=== PATIENT | male | born 1965 | race Caucasian/White ===

== ENCOUNTER 2018-04-05 23:54 | Emergency (ER) | payer OTHER ==
[2018-04-06] MEDS ORDERED: MORPHINE 10 MG/ML VIAL IVP STA (00:25)
[2018-04-06] MEDS ORDERED: SODIUM CHLORIDE 0.9% 1,000 ML IV ONE (00:25)
[2018-04-06 00:37] LABS: BASOPHILS % (AUTO) 0.1 %; EOSINOPHILS % (AUTO) 0.4 %; HGB - HEMOGLOBIN 14.2 g/dL (14.0-18.0); LYMPHOCYTES # (AUTO) 0.7 10^3/uL (1.5-3.5); LYMPHOCYTES % (AUTO) 7.5 %; MEAN CORPUSCULAR HEMOGLOBIN 32.4 pg (27.0-31.0); MEAN CORPUSCULAR HGB CONC 35.1 g/dL (32.0-36.0); MEAN CORPUSCULAR VOLUME 92.2 fL (80.0-94.0); MEAN PLATELET VOLUME 9.5 fL (7.4-11.4); MONOCYTES # (AUTO) 0.6 10^3/uL (0.0-1.0); MONOCYTES % (AUTO) 6.5 %; NEUTROPHILS # (AUTO) 8.2 10^3/uL (1.5-6.6); NEUTROPHILS % (AUTO) 85.5 %; PLT - PLATELET COUNT 183 10^3/uL (130-450); RED CELL DISTRIBUTION WIDTH 13.3 % (12.0-15.0); WHITE BLOOD COUNT 9.6 x10^3/uL (4.8-10.8)
[2018-04-06 00:44] LABS: ALBUMIN 4.3 g/dL (3.2-5.5); ALBUMIN/GLOBULIN RATIO 1.3 (1.0-2.2); BILIRUBIN,TOTAL 1.3 mg/dL (0.2-1.0); CALCIUM 8.9 mg/dL (8.5-10.3); TOTAL PROTEIN 7.6 g/dL (6.7-8.2)
--- NOTE | 2018-04-06 01:07 | XRAY Report ---
Reason: chest pain Procedure Date: 04/06/2018 Accession Number: [id number] / [id number] Procedure: XR - Chest 1 View X-Ray CPT Code: 40479 FULL RESULT: EXAM: CHEST RADIOGRAPHY EXAM DATE: 04/06/2018 12:55 AM. CLINICAL HISTORY: Chest pain. COMPARISON: None. TECHNIQUE: 1 view. FINDINGS: Lungs/Pleura: No alveolar consolidation or pleural effusion is seen. No pneumothorax is noted. Mediastinum: Within exam limitations, the cardiomediastinal contour is normal. Other: None. IMPRESSION: 1. No acute abnormality seen in the chest. [facility]
[2018-04-06] MEDS ORDERED: ASPIRIN CHEW 81 MG TABLET PO STA (03:39)
--- NOTE | 2018-04-06 04:00 | ED Physician Documentation ---
PD HPI CHEST PAIN - Stated complaint Stated Complaint: CHEST PRESSURE/HD PX/DIARRHEA - Chief complaint Chief Complaint: Cardiac - History obtained from History obtained from: Patient - History of Present Illness Timing - onset: How many hours ago (4) Timing - onset during: Rest Timing - details: Gradual onset, Still present Quality: Pressure, Sharp Location: Substernal Associated symptoms: Diaphoresis, Nausea, General Weakness. No: Shortness of air, Vomiting Similar symptoms before: Has not had sx before - Additional information Additional information: Patient is a 52 year old male with no significant past medical history who is presenting to the emergency department for chest pain. patient states that about 4 hours ago he had an episode of substernal and epigastric pain. patient states that he has some nausea and diarrhea with it. Patient states that he developed a headache and overall did not feel well so he came to the emergency department for evaluation. Review of Systems Constitutional: denies: Fever, Chills Eyes: reports: Photophobia Cardiac: reports: Chest pain / pressure. denies: Palpitations, Pedal edema, Calf pain Respiratory: denies: Dyspnea, Cough GI: reports: Nausea, Diarrhea. denies: Vomiting Musculoskeletal: denies: Back pain Immunocompromised: denies: Immunocompromised PD PAST MEDICAL HISTORY - Past Medical History Past Medical History: No - Allergies Allergies/Adverse Reactions: Allergies Allergy/AdvReac Type Severity Reaction Status Date / Time No Known Drug Allergies Allergy Verified 04/06/18 00:06 - Social History Does the pt smoke?: No Smoking Status: Never smoker PD ED PE NORMAL - Vitals Vital signs reviewed: Yes - General General: Alert and oriented X 3 - HEENT HEENT: Atraumatic - Cardiac Cardiac: RRR, No murmur - Respiratory Respiratory: No respiratory distress - Abdomen Abdomen: Soft - Derm Derm: Normal color, Warm and dry - Extremities Extremities: No deformity - Neuro Neuro: Alert and oriented X 3, 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 No: Rebound, Guarding Results - Vitals Vitals: Vital Signs - 24 hr 04/06/18 04/06/18 00:03 00:41 Temperature 36.8 C Heart Rate 95 90 Respiratory 18 16 Rate Blood Pressure 135/90 H 121/82 H O2 Saturation 95 98 Oxygen O2 Source Room air - EKG (time done) 0007 Rate: Rate (enter#) (93) Rhythm: NSR [place]: Normal QRS: Normal Ischemia: Normal ST segments 0151 Rhythm: NSR [place]: Normal Intervals: Normal [place] QRS: Normal Ischemia: Normal ST segments Compare to prior EKG: Unchanged from prior EKG 0352 Rate: Rate (enter#) (87) Rhythm: NSR [place]: Normal Intervals: Normal [place] QRS: Normal Ischemia: Normal ST segments - Labs Labs: Laboratory Tests 04/06/18 04/06/18 04/06/18 00:20 00:20 00:20 WBC 9.6 RBC 4.40 L Hgb 14.2 Hct 40.5 L MCV 92.2 MCH 32.4 H MCHC 35.1 RDW 13.3 Plt Count 183 MPV 9.5 Neut # (Auto) 8.2 H Lymph # (Auto) 0.7 L [place] # (Auto) 0.6 Eos # (Auto) 0.0 Baso # (Auto) 0.0 Absolute Nucleated RBC 0.01 Nucleated RBC % 0.1 Sodium 136 Potassium 3.9 Chloride 101 Carbon Dioxide 27 Anion Gap 8.0 BUN 16 Creatinine 1.0 Estimated GFR (MDRD) 79 L Glucose 93 Calcium 8.9 Total Bilirubin 1.3 H AST 27 ALT 27 Alkaline Phosphatase 57 Troponin I < 0.04 Total Protein 7.6 Albumin 4.3 Globulin 3.3 Albumin/Globulin Ratio 1.3 Lipase 33 04/06/18 04/06/18 01:49 04:05 WBC RBC Hgb Hct MCV MCH MCHC RDW Plt Count MPV Neut # (Auto) Lymph # (Auto) [place] # (Auto) Eos # (Auto) Baso # (Auto) Absolute Nucleated RBC Nucleated RBC % Sodium Potassium Chloride Carbon Dioxide Anion Gap BUN Creatinine Estimated GFR (MDRD) Glucose Calcium Total Bilirubin AST ALT Alkaline Phosphatase Troponin I 0.28 < 0.04 Total Protein Albumin Globulin Albumin/Globulin Ratio Lipase - Rads (name of study) chest x-ray Radiology: Final report received (normal) PD MEDICAL DECISION MAKING - ED course Complexity details: reviewed old records, reviewed results, re-evaluated patient , considered differential, d/w patient ED course: Patient was seen and examined at bedside. iv access was gained and labs were drawn. patient was treated with a fluid bolus and morphine for pain. ekg was within normal limits. chest x-ray was performed and was negative. patient's original diagnostics were all within normal limits. Patient had repeat ekg and troponin. while the ekg remained unchanged the tropon was slightly elevated. it was still below nstemi criteria but due to the increase a third set was ordered. Patient's third ekg was unchanged and the troponin remained negative. patient remained pain free and was stable for discharge with outpatient follow up. - Sepsis Event Vital Signs: Vital Signs - 24 hr 04/06/18 04/06/18 00:03 00:41 Temperature 36.8 C Heart Rate 95 90 Respiratory 18 16 Rate Blood Pressure 135/90 H 121/82 H O2 Saturation 95 98 Oxygen O2 Source Room air Departure - Departure Disposition: 01 Home, Self Care Clinical Impression: Atypical chest pain Condition: Good Instructions: ED Chest Pain Atypical Unkn Cause Follow-Up: IGNACIO PANDEY MD [Primary Care Provider] - Comments: Your diagnostics today were within normal limits. Your pain is unlikely cardiac in nature. that being said it is only a snap shot in time. You should follow up with your doctor for an echocardiogram and a stress test to fully rule out any cardiac dysfunction. You should return to the emergency department at any time for new, worsening or uncontrollable symptoms.
[2018-04-06 04:45] VITALS: BP 123/80
== END 2018-04-06 04:43 | disposition home or self-care (01) ==
LOC: ED 23:54
DX: R07.89 Other chest pain (principal)
CPT/HCPCS: 36415; 71045; 80053; 83690; 84484; 85025; 93005; 96361; 96374; 99283; A9270

== ENCOUNTER 2018-04-27 15:40 | Outpatient (CLI) | payer OTHER ==
--- NOTE | 2018-04-28 10:36 | MRI Report ---
Reason: PAIN IN LEFT KNEE Procedure Date: 04/27/2018 Accession Number: [id number] / [id number] Procedure: MRI - Knee LT W/O CPT Code: FULL RESULT: EXAM: LEFT KNEE MRI WITHOUT CONTRAST EXAM DATE: 04/27/2018 04:29 PM. CLINICAL HISTORY: Left knee pain. COMPARISON: None. TECHNIQUE: Multiplanar, multisequence T1-weighted and fluid-sensitive sequences of the knee without contrast. Other: None. FINDINGS: Bones and Articular Cartilage: Small focal partial-thickness articular cartilage fissure at the lateral patellar facet. No acute fracture or bone lesions. Medial Meniscus: The medial meniscus is intact. Lateral Meniscus: The lateral meniscus is intact. Cruciate Ligaments: The anterior and posterior cruciate ligaments are intact. Collateral Ligaments: The medial collateral and lateral collateral ligamentous structures are intact. Tendons: The quadriceps, patellar, semimembranosus, and popliteus tendons are unremarkable. Musculature: No edema or fatty atrophy. Other: No effusion. Tiny Juárez's cyst. There is an approximately 3 x 2 x 1.3 cm multiseptated ganglion adjacent to the femoral origin site of the medial head gastrocnemius tendon. No loose bodies. The medial and lateral retinacula are intact. Small amount of fluid within the prepatellar and superficial infrapatellar bursae. IMPRESSION: 1. Small focal partial-thickness articular cartilage fissure at the lateral patellar facet. 2. No ligament or meniscal injury. 3. A 3 x 2 x 1.3 cm multiseptated ganglion adjacent to the femoral origin site of the medial head gastrocnemius tendon. 4. Mild prepatellar and superficial infrapatellar bursitis. [facility] MUSCULOSKELETAL RADIOLOGY SECTION
== END 2018-04-27 15:41 | disposition home or self-care (01) ==
LOC: DI 15:40
PROVIDERS: ATTEND General Practice
DX: M23.92 Unspecified internal derangement of left knee (principal); M67.462 Ganglion, left knee; M70.42 Prepatellar bursitis, left knee; M70.52 Other bursitis of knee, left knee

== ENCOUNTER 2019-05-18 09:46 | Outpatient (CLI) | payer OTHER ==
--- NOTE | 2019-05-18 13:10 | MRI Report ---
Reason: PAIN IN LEFT KNEE Procedure Date: 05/18/2019 Accession Number: [id number] / [id number] Procedure: MRI - Knee LT W/O CPT Code: FULL RESULT: EXAM: LEFT KNEE MRI WITHOUT CONTRAST EXAM DATE: 05/18/2019 10:55 AM. CLINICAL HISTORY: Left knee pain. COMPARISON: KNEE LT MRI 04/27/2018 3:59 PM. TECHNIQUE: Multiplanar, multisequence T1-weighted and fluid-sensitive sequences of the knee without contrast. Other: None. FINDINGS: Bones and articular cartilage: No acute fracture or bone lesion. No marrow edema. Articular cartilage fissures at the lateral patellar facet. No patellar subluxation. Medial Meniscus: The medial meniscus is intact. Lateral Meniscus: The lateral meniscus is intact. Cruciate Ligaments: The anterior and posterior cruciate ligaments are intact. Collateral Ligaments: The medial collateral and lateral collateral ligamentous structures are intact. Tendons: The quadriceps, patellar, semimembranosus, and popliteus tendons are unremarkable. Musculature: No edema or fatty atrophy. Other: No effusion. Very small Juárez's cyst. There is an approximately 3.1 x 1.2 x 1.7 cm multiseptated ganglion or synovial cyst adjacent to the distal femoral origin site of the medial head gastrocnemius tendon which is unchanged since the previous study. No loose bodies. The medial and lateral retinacula are intact. The previously seen small amount of fluid within the prepatellar and superficial infrapatellar bursae has decreased slightly since the previous study. IMPRESSION: 1. Articular cartilage fissures at the lateral patellar facet. No change. 2. No ligament or meniscal tear. 3. Multiseptated ganglion or synovial cyst adjacent to the distal femoral origin site of the medial head gastrocnemius tendon. No change. 4. Minimal prepatellar and superficial infrapatellar bursitis which has decreased since the previous study. [facility]
== END 2019-05-18 09:47 | disposition home or self-care (01) ==
LOC: DI 09:46
PROVIDERS: ATTEND General Practice
DX: M70.42 Prepatellar bursitis, left knee (principal)

== ENCOUNTER 2019-05-19 10:22 | Emergency (ER) | payer OTHER ==
[2019-05-19 10:29] VITALS: BP 130/78
--- NOTE | 2019-05-19 11:29 | ED Physician Documentation ---
PD HPI URI - Stated complaint Stated Complaint: CRUZ/DIZZY BODY ACHES - Chief complaint Chief Complaint: Neuro - History obtained from History obtained from: Patient - History of Present Illness Timing - onset: How many days ago (8) Timing duration: Days (has had 8 days of intermittent positional vertigo when bending over and first getting up. He has been traveling for the week, coming back from deployment, with stops in [place] and [place]. Has felt pressure in left periorbital area and left ear. The past couple days is having some congestion, watery eyes and some sore throat as well.) Timing details: Gradual onset, Intermittant Associated symptoms: Nasal congestion, Sinus pain (left frontal and periorbital area). No: Fever, Swollen nodes, Chest pain, Dyspnea Similar symptoms before: Has not had sx before Recently seen: Not recently seen Review of Systems Constitutional: denies: Fever, Chills, Myalgias Eyes: reports: Discharge (clear/watery), Irritation Ears: denies: Loss of hearing Nose: reports: Sinus pressure / pain. denies: Rhinorrhea / runny nose, Congestion Throat: reports: Sore throat Respiratory: denies: Cough GI: denies: Nausea, Vomiting, Diarrhea Skin: denies: Rash, Lesions Neurologic: denies: Focal weakness, Numbness, Confused, Altered mental status PD PAST MEDICAL HISTORY - Past Medical History Cardiovascular: High cholesterol Psych: Depression, Anxiety Other Past Medical History: seasonal allergies. - Present Medications Home Medications: Ambulatory Orders Medication Instructions Recorded Confirmed Cetirizine [ZyrTEC] 10 mg PO DAILY #15 tablet 05/19/19 Doxycycline Hyclate 100 mg PO BID #14 capsule 05/19/19 Meclizine HCl [Motion Sickness 25 mg PO Q6H PRN #25 tablet 05/19/19 Relief] Rosuvastatin Calcium [Crestor] 05/19/19 dexAMETHasone [Decadron] 4 mg PO DAILY #5 tablet 05/19/19 - Allergies Allergies/Adverse Reactions: Allergies Allergy/AdvReac Type Severity Reaction Status Date / Time No Known Drug Allergies Allergy Verified 04/06/18 00:06 - Social History Does the pt smoke?: No Smoking Status: Never smoker Does the pt drink ETOH?: No Does the pt have substance abuse?: No PD ED PE NORMAL - Vitals Vital signs reviewed: Yes - General General: Alert and oriented X 3, No acute distress, Well developed/nourished - HEENT HEENT: Pharynx benign. No: Ears normal (right is okay. Left TM with some pressure/fluid appearance behind it. 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 However has frontal headache and feeling of pressure, so can get CT to ensure no mass effect), d/w patient Departure - Departure Disposition: 01 Home, Self Care Clinical Impression: Positional vertigo of left ear Acute sinusitis Qualifiers: Sinusitis location: frontal Recurrence: non-recurrent Qualified Code(s): J01.10 - Acute frontal sinusitis, unspecified Condition: Stable Record reviewed to determine appropriate education?: Yes Instructions: ED Sinusitis Abx Tx, ED Vertigo Unspecified Follow-Up: JESSE RASHEED III, MD [Primary Care Provider] - Prescriptions: Cetirizine [ZyrTEC] 10 mg PO DAILY #15 tablet dexAMETHasone [Decadron] 4 mg PO DAILY #5 tablet Doxycycline Hyclate 100 mg PO BID #14 capsule Meclizine HCl [Motion Sickness Relief] 25 mg PO Q6H PRN #25 tablet PRN Reason: Vertigo Comments: Stay well-hydrated. Your CT scan appears normal without any signs of intracranial problem. This sounds likely to be a sinus inflammation and some inflammation of the inner ear which is where the balance center is. We will treat this with anti- inflammatories and antihistamines. There may be an infection to it so antibiotics as well. Slow for change of position to minimize dizziness. Meclizine every 6 hours if needed for dizziness. Follow-up with your primary care in the next few days for recheck, call for an appointment. Light activity for the next couple of days. Discharge Date/Time: 05/19/19 12:38
[2019-05-19] MEDS ORDERED: DEXAMETHASONE 10 MG/ML VIAL PO STA (11:52)
[2019-05-19] MEDS ORDERED: CHERRY SYRUP 10 ML UDC PO ONE (11:52)
[2019-05-19] MEDS ORDERED: CETIRIZINE 10 MG TABLET PO STA (11:52)
[2019-05-19] MEDS ORDERED: DOXYCYCLINE 100 MG TABLET PO STA (11:52)
[2019-05-19] MEDS ORDERED: MECLIZINE 12.5 MG TABLET PO STA (11:52)
--- NOTE | 2019-05-19 13:01 | CT Report ---
Reason: dizziness and headache for a week Procedure Date: 05/19/2019 Accession Number: [id number] / [id number] Procedure: CT - HEAD WO CPT Code: FULL RESULT: EXAM: CT HEAD EXAM DATE: 05/19/2019 12:09 PM. CLINICAL HISTORY: Dizziness and headache for a week. COMPARISON: None. TECHNIQUE: Multiaxial CT images were obtained from the foramen magnum to the vertex. Reformats: Sagittal and coronal. IV contrast: None. In accordance with CT protocol optimization, one or more of the following dose reduction techniques were utilized for this exam: automated exposure control, adjustment of mA and/or KV based on patient size, or use of iterative reconstructive technique. FINDINGS: Parenchyma: No intraparenchymal hemorrhage. No evidence of mass, midline shift, or CT findings of infarction. Mas-white differentiation is distinct. Extraaxial Spaces: Normal for age. No subdural or epidural collections identified. Ventricles: Normal in size and position. Sinuses and Orbits: Imaged paranasal sinuses, orbits, and mastoids show no significant abnormality. Bones: No evidence of fracture or calvarial defect. IMPRESSION: 1. Negative noncontrast brain CT. No intracranial hemorrhage or space-occupying lesion. [facility]
== END 2019-05-19 12:38 | disposition home or self-care (01) ==
LOC: ED 10:22
DX: H81.12 Benign paroxysmal vertigo, left ear (principal); J01.10 Acute frontal sinusitis, unspecified
CPT/HCPCS: 70450; 99283; 99284; A9270